=== PATIENT | female | born 1950 | race Caucasian/White ===

== ENCOUNTER → 2016-07-25 | Outpatient (CLI) | payer MEDICARE ==
[~2016-07-25] MED LIST: ALBUTEROL17 GM INH; ALPRAZOLAM0.5 MG PO; AMLODIPINE-BEN1 EAC2 PO; ATROVENT HFA12.9 GM INH; ATROVENT15 ML; BENADRYL25 M3 PO; DELTASONE20 MG; DICLOFENAC PO; DOXYCYCLINE HY100 M3 PO; ESTRADIOL1 EAC4 TD; FAMOTIDINE20 MG PO; FLEXERIL PO; HORMONE PATCH; HYCODAN60 ML 5MG/ PO; LIPITOR20 MG PO; MEDROL DOSEPAK4 MG DOB; NAPROSYN500 MG PO; PREDNISONE PO; PULMICORT FLEX90 MCG; PULMICORT0.25 MG/2; SERZONE150 MG; SERZONE150 MG PO; SKELAXIN PO; TEMAZEPAM30 MG PO; TESSALON PERLE100 M1 PO; TESSALON200 MG PO; VICODIN 5/1 TAB 5/50 PO; VIVELLE-DO1 PATCH.B1 TD; XOPENEX45 MCG/15 IH; ZYRTEC10 M2 PO
--- NOTE | ~2016-07-25 | US6 ---
[facility] A Service of [facility] & [facility] RADIOLOGY TEXT RESULTS PATIENT: ROMELIA HANNA LOCATION: SGUS : 54 UNIT #: [id number] AGE: [address]: RAYO LIGHT MD SEX: F ORDER DR: [id number] [address] [address] [id number] MR#: [id number] Acc #: [id number] NAME: ROMELIA HANNA : 1950 SEX: F STUDY DATE/TIME: 07/25/2016 10:00 UNIT: SG ROOM: STUDY DESCRIPTION: US Abdominal Limited Attending Physician: Rayo Light M.D. Referring Physician: Rayo Light M.D. Ordering Physician: Rayo Light M.D. Primary Care Physician: Rayo Light M.D. MEDICAL IMAGING REPORT This report is preliminary unless electronic signature is present. EXAM Left upper quadrant ultrasound 07/25/2016 HISTORY Left upper quadrant and left lower quadrant abdominal pain for 7 years with nausea for the past 3 weeks, no known injury. FINDINGS The spleen measures approximately 9 cm in longitudinal dimensions. No cystic or solid mass lesions were seen in the spleen. The left kidney measures 8.3 cm in longitudinal dimensions. There is no evidence of hydronephrosis or nephrolithiasis. No cystic or solid mass lesions were seen on the left kidney. There is normal renal cortical echogenicity. IMPRESSION Negative left upper quadrant ultrasound. Dictated by... Cedrick Orlando M.D. THIS IS AN ELECTRONICALLY VERIFIED REPORT Cedrick Orlando M.D. at 07/26/2016 7:[address] TD: 07/25/2016 15:22 JOB #: [id number] MEDICAL IMAGING REPORT Page 1 of 1
== END | disposition home or self-care (01) ==
LOC: SGUS 09:44
DX: R10.12 Left upper quadrant pain (principal); R10.32 Left lower quadrant pain
CPT/HCPCS: 76705

== ENCOUNTER 2016-08-01 10:57 | Emergency (ER) | payer MEDICARE ==
--- NOTE | ~2016-08-01 | EKG ---
PATIENT: ROMELIA HANNA UNIT #: [id number] Ventricular Rate: 46 BPM Atrial Rate: 46 BPM P-R Interval: 162 ms QRS Duration: 78 ms Q-T Interval: 494 ms QTC Calculation(Bezet): 432 ms P [place]: 56 degrees Calculated R [place]: 42 degrees Calculated T [place]: 51 degrees Diagnosis Line: Marked sinus bradycardia Diagnosis Line: Otherwise normal ECG Diagnosis Line: When compared with ECG of 02-JAN-2014 23:37, Diagnosis Line: No significant change was found Diagnosis Line: Confirmed by EDILBERTO SHIPLEY MD ([id number]) on 08/04/2016 Diagnosis Line: 3:42:41 PM INTERPRETING MD: VIOLETTA VEGA
--- NOTE | ~2016-08-01 | CR72 ---
[facility] A Service of [facility] & [facility] RADIOLOGY TEXT RESULTS PATIENT: ROMELIA HANNA LOCATION: SED : 54 UNIT #: [id number] AGE: [address]: Mickey Garcia MD SEX: F ORDER DR: [id number] [address] [address] [id number] MR#: [id number] Acc #: [id number] NAME: ROMELIA HANNA : 1950 SEX: F STUDY DATE/TIME: 08/01/2016 10:30 UNIT: SED ROOM: STUDY DESCRIPTION: CR Chest Single View Portable Attending Physician: Mickey Garcia M.D. Ordering Physician: Mickey Garcia M.D. Primary Care Physician: Rayo Carlson M.D. MEDICAL IMAGING REPORT This report is preliminary unless electronic signature is present. EXAM Chest portable, 08/01/2016 10:30 hours HISTORY 65-year-old woman with complaint of left-sided chest pain for 1 week. History of aortic insufficiency and mitral regurgitation. COMPARISON 01/02/2014 FINDINGS Portable upright chest demonstrates heart size within normal limits. There is a stable minimally tortuous aorta. The pulmonary vascularity is normal. The lungs are clear and there are no effusions. IMPRESSION No acute cardiopulmonary findings. No appreciable change from 01/02/2014. Dictated by... Joanie Rodriguez M.D. THIS IS AN ELECTRONICALLY VERIFIED REPORT Joanie Rodriguez M.D. at 08/01/2016 2:31 PM [place] TD: 08/01/2016 11:42 JOB #: [id number] MEDICAL IMAGING REPORT Page 1 of 1
[2016-08-01 10:36] LABS: POC - CKMB <1.0 ng/mL (0.0-7.9); POC - TROPONIN <0.05 ng/mL (<=0.05)
[2016-08-01 10:38] LABS: BASOPHIL# 0.1 X10e3 (0-0.3); EOSINOPHIL# 0.6 X10e3 (0-0.7); EOSINOPHIL% 8.3 % (0.0-7.0); HEMATOCRIT 41.7 % (35.0-45.0); HEMOGLOBIN 13.8 gm/dL (12.0-16.0); LYMPHOCYTE% 38.9 % (17.0-45.0); MEAN CORPUSCULAR HEMOGLOBIN 29.9 PG (28-34); MEAN CORPUSCULAR HGB CONC 33.2 g/dL (30-36); MEAN PLATELET VOLUME 8.5 FL (6.5-11.5); MONOCYTE# 0.8 X10e3 (0-1.0); MONOCYTE% 10.3 % (3.0-12.0); NEUTROPHIL# 3.2 X10e3 (1.5-7.1); NEUTROPHIL% 41.5 % (40-75); PLATELET COUNT 227 X10e3 (140-420); RED BLOOD COUNT 4.63 X10e (3.90-5.30); RED CELL DISTRIBUTION WIDTH 13.8 % (11.0-15.5); WHITE BLOOD COUNT 7.6 X10e3 (4.0-10.5)
[2016-08-01 10:41] LABS: DIFF IND NO
[2016-08-01 10:50] LABS: PROTHROMBIN TIME (PATIENT) 11.7 SECONDS (9.5-12.4)
[2016-08-01 10:57] LABS: PARTIAL THROMBOPLASTIN TIME 31.1 SECONDS (25.6-38.1)
[~2016-08-01 10:57] MED LIST changes: -AMLODIPINE-BEN1 EAC2 PO; -BENADRYL25 M3 PO; -DELTASONE20 MG; -ESTRADIOL1 EAC4 TD; -FAMOTIDINE20 MG PO; -LIPITOR20 MG PO; -PULMICORT FLEX90 MCG; -SERZONE150 MG; -ZYRTEC10 M2 PO
[2016-08-01 10:59] LABS: ALKALINE PHOSPHATASE 80 U/L (32-92); ALT (SGPT) 14 U/L (10-40); AST (SGOT) 22 U/L (10-42); BILIRUBIN, DIRECT <0.1 mg/dL (0.0-0.2); BILIRUBIN,INDIRECT 0.4 mg/dL (0.0-0.9); BILIRUBIN,TOTAL 0.5 mg/dL (0.2-2.0); BLOOD UREA NITROGEN 11 mg/dL (9-23); BUN/CREATININE RATIO 12.22; CALCIUM SERUM 8.8 mg/dL (8.4-10.2); CARBON DIOXIDE 26 mmol/L (22-31); CHLORIDE 102 mmol/L (100-111); CREATININE SERUM 0.9 mg/dL (0.6-1.4); GLOM FILT RATE Estimated 68.1 mL/min (>60); GLUCOSE FASTING 87 mg/dL (70-110); POTASSIUM 3.4 mmol/L (3.5-5.1); PROTEIN TOTAL SERUM 6.9 g/dL (6.0-8.3); SODIUM 133 mmol/L (135-145)
[2016-08-01 12:16] LABS: POC - CKMB <1.0 ng/mL (0.0-7.9); POC - TROPONIN <0.05 ng/mL (<=0.05)
[2016-09-24] MEDS ORDERED: PULMICORT FLEX90 MCG (12:01)
[2016-09-24] MEDS ORDERED: AMLODIPINE-BEN1 EAC2 PO (12:02)
[2016-09-24] MEDS ORDERED: LIPITOR20 MG PO (12:03)
[2016-09-24] MEDS ORDERED: ESTRADIOL1 EAC4 TD (12:03)
[2016-09-24] MEDS ORDERED: SERZONE150 MG (12:04)
[2016-09-24] MEDS ORDERED: TEMAZEPAM30 MG PO (12:04)
[2016-09-24] MEDS ORDERED: ZYRTEC10 M2 PO (12:06)
[2016-09-24] MEDS ORDERED: FAMOTIDINE20 MG PO (12:08)
[2016-09-24] MEDS ORDERED: DELTASONE20 MG (12:08)
[2016-09-24] MEDS ORDERED: BENADRYL25 M3 PO (12:09)
== END 2016-08-01 12:07 | disposition home or self-care (01) ==
LOC: SED 10:57
PROVIDERS: Emergency Medicine
DX: R07.9 Chest pain, unspecified (principal); I10 Essential (primary) hypertension; J45.909 Unspecified asthma, uncomplicated; F17.200 Nicotine dependence, unspecified, uncomplicated; Z90.710 Acquired absence of both cervix and uterus; Z88.1 Allergy status to other antibiotic agents; Z88.2 Allergy status to sulfonamides; Z91.040 Latex allergy status; Z79.899 Other long term (current) drug therapy
CPT/HCPCS: 36415; 71010; 80048; 80076; 82553; 84484; 85025; 85610; 85730; 93005; 99284

== ENCOUNTER → 2016-09-25 | Outpatient (CLI) | payer MEDICARE ==
[~2016-09-25] MED LIST changes: +AMLODIPINE-BEN1 EAC2 PO; +BENADRYL25 M3 PO; +DELTASONE20 MG; +ESTRADIOL1 EAC4 TD; +FAMOTIDINE20 MG PO; +LIPITOR20 MG PO; +PULMICORT FLEX90 MCG; +SERZONE150 MG; +ZYRTEC10 M2 PO
--- NOTE | ~2016-09-25 | EKG ---
PATIENT: ROMELIA HANNA UNIT #: [id number] Ventricular Rate: 52 BPM Atrial Rate: 52 BPM P-R Interval: 154 ms QRS Duration: 80 ms Q-T Interval: 472 ms QTC Calculation(Bezet): 438 ms P [place]: 52 degrees Calculated R [place]: 10 degrees Calculated T [place]: 14 degrees Diagnosis Line: Sinus bradycardia Diagnosis Line: Nonspecific T wave abnormality Diagnosis Line: Abnormal ECG Diagnosis Line: When compared with ECG of 01-AUG-2016 10:00, Diagnosis Line: Nonspecific T wave abnormality now evident in Diagnosis Line: Lateral leads Diagnosis Line: Confirmed by LISANDRO DAWN MD ([id number]) on Diagnosis Line: 09/25/2016 11:09:51 AM INTERPRETING TANNA SANCHEZ
[2016-09-25 08:01] LABS: HEMATOCRIT 41.4 % (35.0-45.0); HEMOGLOBIN 13.5 gm/dL (12.0-16.0); MEAN CELL VOLUME 91.1 FL (83-96); MEAN CORPUSCULAR HEMOGLOBIN 29.7 PG (28-34); MEAN CORPUSCULAR HGB CONC 32.7 g/dL (30-36); MEAN PLATELET VOLUME 8.6 FL (6.5-11.5); RED BLOOD COUNT 4.55 X10e (3.90-5.30); RED CELL DISTRIBUTION WIDTH 14.2 % (11.0-15.5); WHITE BLOOD COUNT 6.8 X10e3 (4.0-10.5)
[2016-09-25 08:16] LABS: PROTHROMBIN TIME (PATIENT) 10.5 SECONDS (10.0-11.7)
[2016-09-25 08:30] LABS: BUN/CREATININE RATIO 14.44; CALCIUM SERUM 9.2 mg/dL (8.4-10.2); CREATININE SERUM 0.9 mg/dL (0.6-1.4); GLOM FILT RATE Estimated 68.1 mL/min (>60); POTASSIUM 4.1 mmol/L (3.5-5.1)
== END | disposition home or self-care (01) ==
LOC: CCVL 07:27
PROVIDERS: Internal Medicine Cardiovascular Disease
DX: I08.0 Rheumatic disorders of both mitral and aortic valves (principal); I25.10 Atherosclerotic heart disease of native coronary artery without angina pectoris; E78.5 Hyperlipidemia, unspecified; I10 Essential (primary) hypertension; M54.5 Low back pain; J45.909 Unspecified asthma, uncomplicated; Z79.899 Other long term (current) drug therapy; Z87.891 Personal history of nicotine dependence; Z87.440 Personal history of urinary (tract) infections; Z90.710 Acquired absence of both cervix and uterus; Z82.49 Family history of ischemic heart disease and other diseases of the circulatory system; Z80.9 Family history of malignant neoplasm, unspecified; Z88.2 Allergy status to sulfonamides; Z88.8 Allergy status to other drugs, medicaments and biological substances; Z91.013 Allergy to seafood; Z91.040 Latex allergy status
CPT/HCPCS: 36415; 80048; 82810; 85027; 85610; 85730; 93005; C1769; C1887; C1894; J1644; J2250; J3010

== ENCOUNTER → 2016-10-29 | Outpatient (CLI) | payer MEDICARE | END | disposition home or self-care (01) | LOC: CECH 06:56 | DX: Z01.810 Encounter for preprocedural cardiovascular examination (principal); I35.1 Nonrheumatic aortic (valve) insufficiency; I34.0 Nonrheumatic mitral (valve) insufficiency; I36.1 Nonrheumatic tricuspid (valve) insufficiency; I35.8 Other nonrheumatic aortic valve disorders; I51.7 Cardiomegaly | CPT/HCPCS: 93312; J2250; J3010 ==